=== PATIENT | female | born 1980 | race Hispanic/Latino ===

== ENCOUNTER 2022-03-01 17:36 | Inpatient (IN) | payer MEDICAID, SELFPAY ==
[2022-03-01 18:38] LABS: #Basophils 0.1 10x3/uL (0.0-0.2); #Eosinphils 0.5 10x3/uL (0.0-0.5); #Monocytes 0.5 10x3/uL (0.0-1.1); #Neutrophils 3.8 10x3/uL (1.5-8.4); %Basophils 1.2 % (0.0-2.0); %Lymphocytes 28.9 % (18.0-47.0); %Monocytes 7.9 % (0.0-10.0); %Neutrophils 54.9 % (40.0-75.0); Hemoglobin 4.5 g/dL (12.0-15.5); Mean Corpuscular HGB CONC 24.9 g/dL (32.0-36.0); Mean Corpuscular Hemoglobin 14.3 pg (27.0-33.0); Mean Corpuscular Volume 57.6 fl (81.6-98.3); Mean Platelet Volume 9.5 fl (7.4-10.4); Platelet Count 427 10x3/uL (150-450); RBC Distribution Width 21.5 % (11.5-14.5); Red Blood Cell (RBC) Count 3.14 10x6/uL (3.90-5.03); White Blood Cell (WBC) Count 6.9 10x3/uL (3.5-10.5)
[2022-03-01 18:40] LABS: PTT 23.1 sec (22.0-33.0); Prothrombin Time 10.9 sec (9.5-12.1)
[2022-03-01 18:43] LABS: Iron 11 ug/dL (50-170); Iron Binding Capacity, Total 475 mcg/dL (265-497)
[2022-03-01 18:44] LABS: ALT (SGPT) Less than 6 U/L (8-55); AST (SGOT) 11 U/L (5-34); Albumin 4.3 g/dL (3.5-5.0); Alkaline Phosphatase 62 U/L (40-110); Anion Gap 12 mmol/L (10-20); BUN (Urea Nitrogen) 8 mg/dL (7.0-18.7); Bilirubin, Total 0.3 mg/dL (0.2-1.2); Calc. Creatinine Clearance 0 mL/min (70-130); Calcium 9.4 mg/dL (7.8-10.44); Carbon Dioxide 28 mmol/L (22-29); Chloride 101 mmol/L (98-107); Estimated GFR 110; Globulin 3.1 g/dL (2.4-3.5); Glucose 94 mg/dL (70-105); Potassium 3.5 mmol/L (3.5-5.1); Protein, Total 7.4 g/dL (6.0-8.3); Sodium 137 mmol/L (136-145)
[2022-03-01 19:16] LABS: Bilirubin Neg (Negative); Blood, Urine Negative (Negative); Clarity Clear (Clear); Glucose, Urine (Dipstick) Normal (Negative); Ketone, Urine Negative (Negative); Leukocyte Negative (Negative); Nitrite Negative (Negative); Protein, Urine (Dipstick) Negative (Neg-Trace); Specific Gravity, Urine 1.005 (1.002-1.036); Urobilinogen Normal mg/dL (Less than 2)
[2022-03-01 19:18] LABS: Pregnancy Test - Urine (BHCG) Negative (Negative); Pregu Control Background? CLEAR/WHITE (CLR/WHITE); Pregu Control Bar Appear? YES (CONTROL BAR); Specific Gravity 1.005 (1.002-1.036)
[2022-03-01 21:21] LABS: Anisocytosis MARKED = >30 cells (100X) (0-5/hpf); Hypochromia MARKED = >30 cells (100X) (0-5/hpf); Microcytosis MARKED = >30 cells (100X) (0-5/hpf); Platelet Morphology Comment Appears Adequate
[2022-03-01 21:22] LABS: Reflex for Review?? YES
[2022-03-01 21:28] LABS: SARS-CoV-2 NAA Rapid Test Not Detected (NotDetected)
[2022-03-01] MEDS ORDERED: Ondansetron ODT 4 MG TAB PO PRN (22:53)
[2022-03-01] MEDS ORDERED: Ondansetron PF 4 MG/2 ML Vial IVP PRN (22:53)
[2022-03-01] MEDS ORDERED: Pantoprazole 40 MG VIAL IVP SCH (23:30)
[2022-03-02 00:07] VITALS: BMI 20.1
[2022-03-02] MEDS: Sodium Chloride 0.9% 1,000 ML IV SCH ×2 (00:45→11:57)
[2022-03-02 05:04] LABS: #Basophils 0.1 10x3/uL (0.0-0.2); #Eosinphils 0.4 10x3/uL (0.0-0.5); #Monocytes 0.5 10x3/uL (0.0-1.1); #Neutrophils 3.9 10x3/uL (1.5-8.4); %Basophils 1.4 % (0.0-2.0); %Eosinophils 6.6 % (0.0-6.0); %Lymphocytes 24.6 % (18.0-47.0); %Monocytes 7.5 % (0.0-10.0); %Neutrophils 59.6 % (40.0-75.0); Hemoglobin 6.7 g/dL (12.0-15.5); Mean Corpuscular HGB CONC 28.5 g/dL (32.0-36.0); Mean Corpuscular Hemoglobin 17.9 pg (27.0-33.0); Mean Corpuscular Volume 62.8 fl (81.6-98.3); Mean Platelet Volume 9.1 fl (7.4-10.4); Platelet Count 338 10x3/uL (150-450); RBC Distribution Width 26.7 % (11.5-14.5); Red Blood Cell (RBC) Count 3.74 10x6/uL (3.90-5.03); White Blood Cell (WBC) Count 6.5 10x3/uL (3.5-10.5)
[2022-03-02 05:21] LABS: Anisocytosis MARKED = >30 cells (100X) (0-5/hpf); Hypochromia MARKED = >30 cells (100X) (0-5/hpf); Microcytosis MARKED = >30 cells (100X) (0-5/hpf); Platelet Morphology Comment Appears Adequate; Polychromasia SLIGHT = 2-3 cells (100X) (0-2/hpf)
[2022-03-02 05:39] LABS: Anion Gap 11 mmol/L (10-20); BUN (Urea Nitrogen) 6 mg/dL (7.0-18.7); Calc. Creatinine Clearance 102 mL/min (70-130); Calcium 8.5 mg/dL (7.8-10.44); Carbon Dioxide 27 mmol/L (22-29); Chloride 106 mmol/L (98-107); Estimated GFR 115; Glucose 84 mg/dL (70-105); Magnesium 1.7 mg/dL (1.6-2.6); Potassium 3.5 mmol/L (3.5-5.1); Sodium 140 mmol/L (136-145)
[2022-03-02] MEDS ORDERED: Potassium Chloride 20 MEQ TAB PO SCH (06:00)
[2022-03-02] MEDS ORDERED: Acetaminophen 500 MG TAB PO SCH (06:15)
[2022-03-02] MEDS: Pantoprazole 40 MG VIAL IVP SCH ×2 (08:01→19:59)
[2022-03-02] MEDS ORDERED: Enoxaparin Sodium 40 MG/0.4 ML SYRINGE SC SCH (09:00)
[2022-03-02 15:58] LABS: Hemoglobin 7.8 g/dL (12.0-15.5)
[2022-03-02] MEDS ORDERED: GoLYTELY 4,000 ml Bottle PO SCH (16:45)
[2022-03-03] MEDS: Sodium Chloride 0.9% 1,000 ML IV SCH ×2 (02:00→14:30)
[2022-03-03 04:09] LABS: Hemoglobin 7.5 g/dL (12.0-15.5); Mean Corpuscular HGB CONC 29.5 g/dL (32.0-36.0); Mean Corpuscular Hemoglobin 19.7 pg (27.0-33.0); Mean Corpuscular Volume 66.7 fl (81.6-98.3); Platelet Count 314 10x3/uL (150-450); RBC Distribution Width 28.8 % (11.5-14.5); Red Blood Cell (RBC) Count 3.81 10x6/uL (3.90-5.03)
[2022-03-03 04:15] LABS: MDiff Complete? YES
[2022-03-03 04:26] LABS: Anion Gap 14 mmol/L (10-20); BUN (Urea Nitrogen) Less than 4 mg/dL (7.0-18.7); Calc. Creatinine Clearance 118 mL/min (70-130); Carbon Dioxide 20 mmol/L (22-29); Chloride 111 mmol/L (98-107); Estimated GFR 119; Glucose 66 mg/dL (70-105); Potassium 3.5 mmol/L (3.5-5.1); Sodium 141 mmol/L (136-145)
[2022-03-03 04:30] LABS: Eosinophils 5 % (0-10); Lymphocytes 32 % (21-51); Monocytes 7 % (0-10); Neutrophil 56 % (42-75)
[2022-03-03 04:31] LABS: Anisocytosis MARKED = >30 cells (100X) (0-5/hpf); Hypochromia MARKED = >30 cells (100X) (0-5/hpf); Microcytosis MODERATE=15-30 cells (100X) (0-5/hpf)
[2022-03-03 04:32] LABS: Platelet Morphology Comment Appears Adequate; Polychromasia SLIGHT = 2-3 cells (100X) (0-2/hpf)
[2022-03-03] MEDS: Pantoprazole 40 MG VIAL IVP SCH (09:09)
[2022-03-03] MEDS ORDERED: Iopamidol 370 76% 100 ML VIAL ONE (09:14)
[2022-03-03] MEDS ORDERED: PROPOFOL 20 ML ONE ×4 (14:33→15:10)
[2022-03-03] MEDS ORDERED: Lidocaine 1% PF 5 ML VIAL ONE (14:34)
[2022-03-03] MEDS ORDERED: Acetaminophen 325 MG TAB PO PRN (16:30)
[2022-03-03] MEDS: Famotidine 20 MG TAB PO SCH (21:30)
[2022-03-04 05:27] LABS: #Basophils 0.1 10x3/uL (0.0-0.2); #Eosinphils 0.5 10x3/uL (0.0-0.5); #Monocytes 0.6 10x3/uL (0.0-1.1); #Neutrophils 4.5 10x3/uL (1.5-8.4); %Basophils 1.5 % (0.0-2.0); %Eosinophils 6.7 % (0.0-6.0); %Lymphocytes 22.5 % (18.0-47.0); %Monocytes 7.6 % (0.0-10.0); %Neutrophils 61.3 % (40.0-75.0); Anion Gap 10 mmol/L (10-20); BUN (Urea Nitrogen) Less than 4 mg/dL (7.0-18.7); Calc. Creatinine Clearance 118 mL/min (70-130); Calcium 8.1 mg/dL (7.8-10.44); Carbon Dioxide 23 mmol/L (22-29); Chloride 112 mmol/L (98-107); Estimated GFR 119; Glucose 85 mg/dL (70-105); Mean Corpuscular HGB CONC 29.2 g/dL (32.0-36.0); Mean Corpuscular Hemoglobin 19.7 pg (27.0-33.0); Mean Corpuscular Volume 67.5 fl (81.6-98.3); Mean Platelet Volume 9.4 fl (7.4-10.4); Platelet Count 354 10x3/uL (150-450); Potassium 3.7 mmol/L (3.5-5.1); RBC Distribution Width 29.4 % (11.5-14.5); Red Blood Cell (RBC) Count 4.06 10x6/uL (3.90-5.03); Sodium 141 mmol/L (136-145); White Blood Cell (WBC) Count 7.3 10x3/uL (3.5-10.5)
[2022-03-04 06:15] LABS: Hypochromia MODERATE=16-30 cells (100X) (0-5/hpf); Microcytosis SLIGHT = 6-15 cells (100X) (0-5/hpf); Platelet Morphology Comment Appears Adequate
[2022-03-04 06:16] LABS: Anisocytosis SLIGHT = 6-15 cells (100X) (0-5/hpf)
[2022-03-04] MEDS: Sodium Chloride 0.9% 1,000 ML IV SCH (06:42)
[2022-03-04] MEDS: Famotidine 20 MG TAB PO SCH (09:42)
[2022-03-04] MEDS ORDERED: Magnevist 469MG/ML 20 ML VIAL ONE (13:59)
[2022-03-04] MEDS ORDERED: Morphine 2 MG/ML VIAL SLOW IVP PRN (14:57)
[2022-03-04 17:10] VITALS: BP 160/99; TEMP 99.5
== END 2022-03-04 20:45 | disposition home or self-care (01) | DRG 394 ==
LOC: CSHERS 17:36 → CSHIMCU 23:21 → CSHTELE 03-03 17:49
PROVIDERS: ADMIT Family Medicine; ATTEND Internal Medicine
PROC: 30233N1 Transfusion of Nonautologous Red Blood Cells into Peripheral Vein, Percutaneous Approach (ICD-10-PCS; 2022-03-01)
PROC: 0DB98ZX Excision of Duodenum, Via Natural or Artificial Opening Endoscopic, Diagnostic (ICD-10-PCS; principal; 2022-03-03)
PROC: 0DJD8ZZ Inspection of Lower Intestinal Tract, Via Natural or Artificial Opening Endoscopic (ICD-10-PCS; 2022-03-03)
DX: K64.8 Other hemorrhoids (principal); D62 Acute posthemorrhagic anemia; D50.9 Iron deficiency anemia, unspecified; E11.9 Type 2 diabetes mellitus without complications; I10 Essential (primary) hypertension; Z20.822 Contact with and (suspected) exposure to COVID-19; K59.09 Other constipation; Z88.5 Allergy status to narcotic agent; Z88.8 Allergy status to other drugs, medicaments and biological substances; Z98.890 Other specified postprocedural states
CPT/HCPCS: 36415; 36430; 71260; 74177; 74183; 80048; 80053; 81003; 81025; 82728; 83540; 83550; 83735; 84443; 85025; 85060; 85610; 85730; 86850; 86900; 86901; 88305; A9579; C9113; J2704; J3475; J7050; P9016; Q9967

== ENCOUNTER 2023-07-15 10:52 | Emergency (ER) | payer SELFPAY ==
[2023-07-15] MEDS ORDERED: Ketorolac Tromethamine 30 MG/ML VIAL ONE (11:44)
[2023-07-15 12:07] LABS: Bilirubin Neg (Negative); Blood, Urine 150 (Negative); Clarity Clear (Clear); Glucose, Urine (Dipstick) Normal (Negative); Ketone, Urine 50 mg/dL (Negative); Leukocyte Negative (Negative); Nitrite Negative (Negative); Protein, Urine (Dipstick) 15 mg/dl (Neg-Trace); Specific Gravity, Urine 1.015 (1.005-1.030); Urobilinogen Normal mg/dL (Less than 2)
[2023-07-15 12:17] LABS: BHCG - Serum Negative (NEGATIVE); Pregs Control Background? CLEAR/WHITE (CLR/WHITE); Pregs Control Bar Appear? YES (CONTROL BAR)
[2023-07-15 12:31] LABS: ALT (SGPT) 8 U/L (8-55); AST (SGOT) 14 U/L (5-34); Albumin 4.9 g/dL (3.5-5.0); Alkaline Phosphatase 75 U/L (40-110); Anion Gap 16 mmol/L (10-20); BUN (Urea Nitrogen) 5 mg/dL (7.0-18.7); Bilirubin, Total 0.5 mg/dL (0.2-1.2); Calc. Creatinine Clearance 0 mL/min (70-130); Calcium 9.2 mg/dL (7.8-10.44); Carbon Dioxide 22 mmol/L (22-29); Chloride 99 mmol/L (98-107); Estimated GFR 107; Globulin 3.7 g/dL (2.4-3.5); Glucose 97 mg/dL (70-105); Lipase 15 U/L (8-78); Potassium 3.4 mmol/L (3.5-5.1); Protein, Total 8.6 g/dL (6.0-8.3); Sodium 134 mmol/L (136-145)
[2023-07-15 12:32] LABS: #Basophils 0.1 10x3/uL (0.0-0.2); #Eosinphils 0.3 10x3/uL (0.0-0.5); #Monocytes 0.8 10x3/uL (0.0-1.1); %Basophils 1.3 % (0.0-2.0); %Eosinophils 3.4 % (0.0-6.0); %Lymphocytes 10.9 % (18.0-47.0); %Monocytes 10.2 % (0.0-10.0); Hematocrit 29.2 % (34.9-44.5); Hemoglobin 7.8 g/dL (12.0-15.5); Mean Corpuscular HGB CONC 26.7 g/dL (32.0-36.0); Mean Corpuscular Hemoglobin 16.5 pg (27.0-33.0); Mean Corpuscular Volume 61.9 fl (81.6-98.3); Mean Platelet Volume 9.7 fl (7.4-10.4); Platelet Count 487 10x3/uL (150-450); RBC Distribution Width 21.2 % (11.5-14.5); Red Blood Cell (RBC) Count 4.72 10x6/uL (3.90-5.03); White Blood Cell (WBC) Count 8.2 10x3/uL (3.5-10.5)
[2023-07-15] MEDS ORDERED: fentaNYL 50 mcg/mL 1 mL Vial ONE (12:51)
[2023-07-15 13:05] LABS: Hypochromia MARKED = >30 cells (100X) (0-5/hpf); Polychromasia MODERATE = 3-4 cells (100X) (0-2/hpf)
[2023-07-15 13:06] LABS: Microcytosis MARKED = >30 cells (100X) (0-5/hpf)
[2023-07-15 13:07] LABS: Ovalocytes MODERATE= 6-15 cells (100X) (0-1/hpf); Platelet Adequacy Comment Appears Increased
[2023-07-15 13:08] LABS: Reflex for Review?? YES
[2023-07-15 13:55] LABS: Bacteria/HPF 2+ HPF (None Seen); CAUTI Indications for Culture Pelvic or flank pain; Squamous Epithelial 0-3 HPF (0-3); Urine Culture Reflex No No; WBC/HPF 0-3 HPF (0-3)
[2023-07-15 14:04] LABS: Manual Diff?? YES
== END 2023-07-15 14:54 | disposition home or self-care (01) ==
LOC: CSHERS 10:52
DX: D50.0 Iron deficiency anemia secondary to blood loss (chronic) (principal); N83.202 Unspecified ovarian cyst, left side
CPT/HCPCS: 74176; 80053; 81001; 82550; 83690; 84484; 84703; 85025; 85060; 87804; 93005; 96374; 96375; J1885; J3010